=== PATIENT | male | born 1975 | race Caucasian/White ===

== ENCOUNTER 2020-05-21 11:16 | Outpatient (CLI) | payer OTHER, SELFPAY ==
--- NOTE | ~2020-05-21 | XR_ITS ---
EXAMINATION: XR knee LT 3V EXAM DATE: 05/21/2020 11:35 INDICATION: No known recent injury provided at this time. Pain of the left knee effusion. TECHNIQUE: Three projections of the left knee. There is no prior study for comparison. FINDINGS: No evidence osteochondral defect or joint body in the left knee joint. There are no acute fractures or dislocations identified. There is no subcutaneous gas. Small to moderate-sized joint effusion. There are no radiopaque foreign bodies. IMPRESSION: Small to moderate left knee joint effusion. Reviewed, dictated and finalized at location B.
== END 2020-05-21 11:17 | disposition home or self-care (01) ==
LOC: ANHIMG 11:21
PROVIDERS: PCP Family Medicine; Visit Provider Family Medicine
DX: M25.562 Pain in left knee (principal); M25.462 Effusion, left knee
CPT/HCPCS: 73562

== ENCOUNTER → 2023-10-16 08:45 | Outpatient (CLI) | payer OTHER, SELFPAY ==
--- NOTE | ~2023-10-16 | XR_ITS ---
EXAMINATION: XR knee RT 3V DATE: 10/16/2023 09:13 INDICATION: Anterior right knee pain TECHNIQUE: Weight bearing anteroposterior and Whittaker, sunrise, and flexed lateral views of the rig ht knee were obtained COMPARISON: None. FINDINGS: Alignment is normal. No fracture. Joint spaces are normal with no evident cortical irregularity, ost eophytosis or erosions. Small right knee joint effusion and/or synovitis at the suprapatellar recess. Soft tissues are otherwise unremarkable. IMPRESSION: 1. Small right knee joint effusion and/or synovitis at the suprapatellar pouch. No osseous abnormalit y. Reviewed, dictated and finalized at location A. INSPECTOR IMPRESSION: 1. Small right knee joint effusion and/or synovitis at the suprapatellar pouch. No osseous abnormality.
== END ==
PROVIDERS: PCP Orthopaedic Surgery; Visit Provider Physician Assistant
DX: M25.461 Effusion, right knee (principal)
CPT/HCPCS: 73562

== ENCOUNTER 2023-10-17 03:32 | Day surgery (SDC) | payer OTHER, SELFPAY ==
[2023-10-02 14:19] VITALS: BMI 34.3
--- NOTE | 2023-10-15 09:16 | SUR.PREOP ---
Patient called regarding upcoming procedure. Reviewed preop instructions, appointment times, and procedure prep.
[2023-10-17 08:13] VITALS: BP 117/79; PULSE 77; RESP 18; TEMP 36.3; O2SAT 96; BMI 33.4
[2023-10-17] MEDS: LACTATED RINGERS 1,000 ML 150 ML IV CONT (08:21)
--- NOTE | 2023-10-17 08:24 | WPDANESEPPF ---
Anes - Initial Pre Proc Eval Procedure: Operation Date: 10/17/23 09:30 Proposed Procedures p Screening Colonoscopy - Matt Koroma MD Date/Time: 10/17/23 08:24 Surgeon: Matt Koroma MD Pre Op Diagnosis: neoplasm screening Patient Data Age: 48 Gender: M Height: 1.85 m Weight: 114.9 kg Last Vital Signs Temp 36.3 C L 10/17/23 08:13 Pulse 77 10/17/23 08:13 Resp 18 10/17/23 08:13 BP 117/79 10/17/23 08:13 Pulse Ox 96 10/17/23 08:13 O2 Del Method Room Air 10/17/23 08:13 Allergies Allergy/AdvReac Type Severity Reaction Status Date / Time No Known Allergies Allergy Verified 10/17/23 08:12 Home Medications Medication Instructions Recorded Confirmed Type atorvastatin 20 mg tablet See Rx Instructions .Route 06/08/23 10/17/23 Rx .COMPLEX #90 tabs allopurinol 300 mg tablet See Rx Instructions .Route 06/11/23 10/17/23 Rx .COMPLEX #90 tabs Patient hx anesthesia problems: none Family hx anesthesia problems: none Results Review: All pre-operative results and documents have been reviewed as part of the pre-operative evaluation. [facility] Past Medical History Medical History (Updated 10/17/23 @ 08:25 by Nav Padgett MD) Obesity Surgical History Surgical History (Updated 10/17/23 @ 08:25 by Nav Padgett MD) History of ankle surgery Family History Family History Mother Patient's mother is in good health Sibling Patient's sister is in good health Patient's brother is in good health Other Diabetes mellitus Heart disease Hypertension Malignant neoplasm of prostate Daughter Asthma Depression Grandparent Cancer Diabetes mellitus Other Cerebrovascular accident Social History Social History Social History: Smoking status: Former smoker (social, college) Smokeless tobacco user: chewing tobacco Second hand tobacco smoke exposure: No Smoking end date: 11/26/12 Alcohol intake: current Alcohol use details: rarely Substance use: never Substance use type: does not use Living arrangements: with family Occupation/Education: occupation Gender identity (if verbalized by the patient): Male Sexual Orientation (if Verbalized by the Patient): Straight or Heterosexual Spiritual care concerns: No Anes - Eval Final PreProcedure Day of Procedure 10/17/23 08:24 Patient weight: obese Heart: regular rate and rhythm Lungs: clear to auscultation Airway: Mallampati scale class II Neurological: alert and oriented Last oral intake: >/= 8 hours ASA classification: II Emergent: no Anesthetic plan: proceed Anesthesia type and monitoring: general GIVS and standard monitoring Results Review: All pre-operative results and documents have been reviewed as part of the pre-operative evaluation. Informed Consent: The patient's anesthetic plan and its attendant risks and benefits were discussed with the patient/family/POA. Questions were solicited and answers provided to the satisfaction of the patient/family/POA.
--- NOTE | 2023-10-17 09:06 | PM.HPGS ---
History of Present Illness History of Present Illness Consent: Risks, benefits, and alternatives have been discussed and questions answered. Patient agrees to proceed with procedure. Chief complaint: neoplasm screening Narrative: Ryan Hernandez is a 48 year old male here for first screening colonoscopy Review of Systems Constitutional: Constitutional: Denies headache(s) and Denies weakness Eyes: Eyes: Denies blurry vision ENT: Reports Normal hearing present, Denies headache(s) and Denies neck pain Cardiovascular: Cardiovascular: Denies chest pain and Denies dyspnea Respiratory: Respiratory: Denies dyspnea Gastrointestinal: Gastrointestinal: Reports no additional gastrointestinal complaints Genitourinary: Genitourinary: Denies dysuria Musculoskeletal: Musculoskeletal: Denies neck pain Integumentary/Breasts: Skin/Breast: Denies dry skin Neurologic: Reports Normal hearing present, Denies headache(s) and Denies weakness Psychiatric: Psychiatric: Denies anxiety Endocrine: Endocrine: Denies change in body appearance Hematologic/Lymphatic: Hematologic/Lymphatic: Denies easy bleeding Allergic/Immunologic: Allergic/Immunologic: Denies urticaria PMF Past Medical History Medical History (Updated 10/17/23 @ 08:25 by Nav Padgett MD) Obesity Surgical History Surgical History (Updated 10/17/23 @ 08:25 by Nav Padgett MD) History of ankle surgery Family History Family History Mother Patient's mother is in good health Sibling Patient's sister is in good health Patient's brother is in good health Other Diabetes mellitus Heart disease Hypertension Malignant neoplasm of prostate Daughter Asthma Depression Grandparent Cancer Diabetes mellitus Other Cerebrovascular accident Social History Social History Social History: Smoking status: Former smoker (social, college) Smokeless tobacco user: chewing tobacco Second hand tobacco smoke exposure: No Smoking end date: 11/26/12 Alcohol intake: current Alcohol use details: rarely Substance use: never Substance use type: does not use Living arrangements: with family Occupation/Education: occupation Gender identity (if verbalized by the patient): Male Sexual Orientation (if Verbalized by the Patient): Straight or Heterosexual Spiritual care concerns: No Meds Home Medications and Allergies Home Medications Medication Instructions Recorded Confirmed Type atorvastatin 20 mg tablet See Rx Instructions .Route 06/08/23 10/17/23 Rx .COMPLEX #90 tabs allopurinol 300 mg tablet See Rx Instructions .Route 06/11/23 10/17/23 Rx .COMPLEX #90 tabs Allergies Allergy/AdvReac Type Severity Reaction Status Date / Time No Known Allergies Allergy Verified 10/17/23 08:12 Vital Signs Vital Signs - 24 hr 10/17/23 08:13 Temperature 97.3 F L Pulse Rate 77 Respiratory Rate 18 Blood Pressure 117/79 Pulse Oximetry 96 Oxygen Delivery Room Air Exam Const: General: comfortable and no acute distress HENMT: Face/Nose/Sinus: Normal nares present Eyes: General: appearance normal, both eyes and all related structures Neck: Neck: no JVD Resp: Auscultation: clear to auscultation bilaterally Cardio: Rate: regular rate Rhythm: regular rhythm GI: Inspection: non-distended GI Palp: Yes Soft to palpation Skin: General skin exam: normal color Neuro: General: gait normal Speech: normal speech Extrem: General: normal to inspection Psych: Mental Status: mental status grossly normal Assessment and Plan Assessment and plan (1) Screening for colorectal cancer: Code(s): Z12.11 - Encounter for screening for malignant neoplasm of colon; Z12.12 - Encounter for screening for malignant neoplasm of rectum Status: Acute Assessment and Plan: colonoscopy
[2023-10-17 09:30] VITALS: BP 111/70; PULSE 72; RESP 26; O2SAT 99
[2023-10-17 09:40] VITALS: BP 108/69; PULSE 65; RESP 19; O2SAT 99
[2023-10-17 09:50] VITALS: BP 110/71; PULSE 62; RESP 18; O2SAT 99
== END 2023-10-17 09:58 | disposition home or self-care (01) ==
PROVIDERS: PCP Family Medicine; Visit Provider Internal Medicine Gastroenterology
PROC: 0DJD8ZZ Inspection of Lower Intestinal Tract, Via Natural or Artificial Opening Endoscopic (ICD-10-PCS; CPT 45378; principal; 2023-10-17 09:30)
DX: Z12.11 Encounter for screening for malignant neoplasm of colon (principal); K57.30 Diverticulosis of large intestine without perforation or abscess without bleeding; K64.8 Other hemorrhoids; E66.9 Obesity, unspecified; Z68.33 Body mass index [BMI] 33.0-33.9, adult
CPT/HCPCS: 45378; J2704; J7120

== ENCOUNTER → 2023-11-15 09:48 | Outpatient (CLI) | payer OTHER, SELFPAY ==
--- NOTE | ~2023-11-15 | MR_ITS ---
MRI of the right knee Clinical history: Injury Technique: Coronal proton density and proton density-weighted images, sagittal proton-density and T2 fat-sat images, and axial proton-density fat-saturated images were acquired. Findings: Anterior and posterior cruciate ligaments are intact. Medial collateral ligament and the la teral collateral ligament complex are intact. Popliteus tendon is intact. Medial and lateral menisci are intact, without evidence of tear. There are grade 4 chondral fissures or delamination injuries of the lateral patellar facet and latera l femoral trochlea. Articular cartilage in the medial lateral compartments is intact. Extensor mechanism is intact. There is small joint effusion. No Rivero's cyst. Impression: Grade 4 chondral fissures or delamination injuries at the lateral patellar facet and lateral femoral trochlea. Small joint effusion. Reviewed, dictated and finalized at [facility]. HER COVERER Impression: Grade 4 chondral fissures or delamination injuries at the lateral patellar face t and lateral femoral trochlea. Small joint effusion.
== END ==
PROVIDERS: PCP Orthopaedic Surgery; Visit Provider Orthopaedic Surgery
DX: S89.91XA Unspecified injury of right lower leg, initial encounter (principal); M25.461 Effusion, right knee; X58.XXXA Exposure to other specified factors, initial encounter
CPT/HCPCS: 73721